=== PATIENT | male | born 1935 ===

== ENCOUNTER 2017-05-18 22:08 | Inpatient (IN) | payer MEDICARE, OTHER ==
[2017-05-18 22:17] VITALS: BMI 26.9
--- NOTE | 2017-05-18 22:36 | ED PDOC ---
Arrival/HPI - General Chief Complaint: Male Genitourinary Time Seen by Provider: 05/18/17 22:11 Historian: Patient - History of Present Illness Narrative History of Present Illness (Text): 05/18/17 22:30 An 82 year old male whose past medical history includes hypertension and prostate surgery, presents to the emergency department with 6 day duration hematuria and urinary frequency. The patient states that the bleeding became worse today in comparison to previous bleeding and his urinary frequency returned tonight. He notes that he went to visit his PMD 3 days ago, who prescribed him Nitrofurantoin for a UTI. The patient denies abdominal pain, fever, chest pain, shortness of breath, cough, chills, nausea, vomiting, diarrhea, headache, dizziness or any other complaints. PMD: Dr.Cruz- Johnson Time/Duration: Other (6 Days Ago) Symptom Onset: Sudden Symptom Course: Unchanged Activities at Onset: Rest, Light Context: Home Past Medical History - Provider Review Nursing Documentation Reviewed: Yes - Cardiac Hx Hypertension: Yes - Pulmonary Hx Respiratory Disorders: No - Neurological Hx Neurological Disorder: No - HEENT Hx HEENT Disorder: No - Renal Hx Renal Disorder: No - Endocrine/Metabolic Hx Endocrine Disorders: No - Hematological/Oncological Hx Blood Disorders: No - Integumentary Hx Dermatological Disorder: No - Musculoskeletal/Rheumatological Hx Musculoskeletal Disorders: No - Gastrointestinal Hx Gastrointestinal Disorders: No - Genitourinary/Gynecological Hx Prostate Problems: Yes - Psychiatric Hx Psychophysiologic Disorder: No Hx Substance Use: No - Anesthesia Hx Anesthesia: Yes Hx Anesthesia Reactions: No Family/Social History - Physician Review Nursing Documentation Reviewed: Yes Family/Social History: No Known Family HX Smoking Status: Never Smoked Hx Alcohol Use: Yes Hx Substance Use: No Allergies/Home Meds Allergies/Adverse Reactions: Allergies No Known Allergies Allergy (Verified 05/18/17 22:17) Home Medications: Home Meds Medication Instructions Recorded Confirmed Amlodipine Besylate/Benazepril 1 cap PO DAILY 05/19/17 05/19/17 [Amlodipine-Benazepril 10-40 mg] Review of Systems - Physician Review All systems were reviewed & negative as marked: Yes - Review of Systems Constitutional: absent: Fevers, Night Sweats Respiratory: absent: SOB, Cough Cardiovascular: absent: Chest Pain Gastrointestinal: absent: Abdominal Pain, Diarrhea, Nausea, Vomiting Genitourinary Male: Frequency, Hematuria Neurological: absent: Headache, Dizziness Physical Exam Vital Signs Temp Pulse Resp BP Pulse Ox 05/19/17 03:00 67 18 146/74 98 05/19/17 02:53 98.3 F 05/19/17 01:28 68 18 145/66 98 05/19/17 00:13 75 18 175/80 H 100 05/18/17 22:18 98.5 F 82 18 176/67 H 95 05/18/17 22:16 98.5 F 82 18 176/67 H 95 Appearance: Positive for: Well-Appearing, Non-Toxic, Comfortable Pain Distress: None Mental Status: Positive for: Alert and Oriented X 3 - Systems Exam Head: Present: Atraumatic Pupils: Present: PERRL Mouth: Present: Moist Mucous Membranes Neck: Present: Normal Range of Motion Respiratory/Chest: Present: Clear to Auscultation Cardiovascular: Present: Regular Rate and Rhythm Abdomen: No: Tenderness, Distention Upper Extremity: Present: NORMAL PULSES Lower Extremity: No: Edema Neurological: Present: GCS=15, Motor Func Grossly Intact, Normal Sensory Function, Other (no focal deficits) Skin: Present: Warm, Dry Psychiatric: Present: Alert, Oriented x 3 Medical Decision Making ED Course and Treatment: Progress Notes: CT Abdomen and Pelvis With Intravenous Contrast IMPRESSION: - 5 x 3 cm well-defined, masslike density in the bladder lumen. This could represent clot, but cannot rule out a bladder mass. Further workup is recommended. - Mild bilateral ureteral dilatation, without significant hydronephrosis, cause not identified. - Otherwise, no evidence of significant acute process. - Enlarged and heterogeneous prostate gland. - See above for remaining findings. Dictated and Authenticated by: Juana Rahman MD 05/19/2017 1:47 AM Eastern Time ([place] & [place]) EKG: Ordered, reviewed, and independently interpreted the EKG. Rate : 69 BPM Rhythm : NSR Interpretation : No acute ischemia. 1st degree block. After CBI the pts urine remained blood-tinged. [address] Ojeda who will admit 05/19/17 06:[address] Mcgrath who will see pt as consult - Lab Interpretations Lab Results: 05/18/17 22:35 05/18/17 22:35 Lab Results 05/19/17 00:20: Blood Type Confirm B POSITIVE 05/18/17 23:00: Blood Type B POSITIVE, Antibody Screen Negative, BBK History Checked No verified bt 05/18/17 22:35: Urine Color Dark red, Urine Appearance Cloudy, Urine pH 8.0, Ur Specific [place] 1.015, Urine Protein >=300 H, Urine Glucose (UA) 250 H, Urine Ketones 15 H, Urine Blood Large H, Urine Nitrate Positive H, Urine Bilirubin Negative, Urine Urobilinogen 4.0 H, Ur Leukocyte Esterase Small H, Urine RBC Tntc, Urine WBC 1 - 3, Ur Epithelial Cells 0 - 2, Urine Bacteria Rare 05/18/17 22:35: Sodium 136, Potassium 4.0, Chloride 99, Carbon Dioxide 26, Anion Gap 15, BUN 20, Creatinine 1.1, Est GFR ( Amer) > 60, Est GFR (Non- Af Amer) > 60, Random Glucose 141 H, Calcium 8.9, Total Bilirubin 1.5 H, AST 34 , ALT 39, Alkaline Phosphatase 66, Total Protein 7.4, Albumin 4.4, Globulin 3.0 , Albumin/Globulin Ratio 1.5 05/18/17 22:35: PT 10.7, INR 0.99, APTT 27.8 05/18/17 22:35: WBC 8.1, RBC 3.47 L, Hgb 11.6 L, Hct 33.4 L, MCV 96.3, MCH 33.4 , MCHC 34.7, RDW 12.0, Plt Count 210, MPV 9.2, Gran % 65.0, Lymph % (Auto) 24.0 , Lares % (Auto) 8.6 H, Eos % (Auto) 2.2, Baso % (Auto) 0.2, Gran # 5.26, Lymph # 2.0, Lares # 0.7 H, Eos # 0.2, Baso # 0.02 I have reviewed the lab results: Yes - RAD Interpretation Radiology Orders: 05/19/17 00:27 ABD & PELVIS IV CONTRAST ONLY [CT] Stat - Medication Orders Current Medication Orders: Sodium Chloride (Sodium Chloride 0.9%) 1,000 mls @ 100 mls/hr IV .Q10H LEONEL Last Admin: 05/19/17 04:06 Dose: 100 mls/hr Discontinued Medications Ceftriaxone Sodium (Rocephin 1 Gram Ivpb) 1 gm in 100 mls @ 200 mls/hr IVPB STAT STA PRN Reason: Protocol Stop: 05/19/17 00:44 Last Admin: 05/19/17 01:29 Dose: 200 mls/hr Iohexol (Omnipaque 350 100 Ml) Confirm Administered Dose 350 mg .ROUTE .STK-MED ONE Stop: 05/19/17 01:02 - Scribe Statement The provider has reviewed the documentation as recorded by the Scribe Indigo Doss Provider Scribe Attestation: All medical record entries made by the Scribe were at my direction and personally dictated by me. I have reviewed the chart and agree that the record accurately reflects my personal performance of the history, physical exam, medical decision making, and the department course for this patient. I have also personally directed, reviewed, and agree with the discharge instructions and disposition Disposition/Present on Arrival - Present on Arrival Any Indicators Present on Arrival: No History of DVT/PE: No History of Uncontrolled Diabetes: No Urinary Catheter: No History of Decub. Ulcer: No History Surgical Site Infection Following: None - Disposition Have Diagnosis and Disposition been Completed?: Yes Diagnosis: Hematuria, Bladder mass Disposition: HOSPITALIZED Disposition Time: 02:13 Condition: STABLE
[2017-05-18 23:02] LABS: BASO # 0.02 K/mm3 (0.0-2.0); BASO % 0.2 % (0.0-3.0); EOS # 0.2 (0.0-0.7); EOS % 2.2 % (1.5-5.0); GRAN # 5.26 (1.4-6.5); HEMATOCRIT 33.4 % (42.0-52.0); MEAN CELL VOLUME 96.3 fl (80.0-105.0); MEAN CORPUSCULAR HEMOGLOBIN 33.4 pg (25.0-35.0); MEAN CORPUSCULAR HGB CONC 34.7 g/dl (31.0-37.0); MEAN PLATELET VOLUME 9.2 fl (7.0-11.0); MONO # 0.7 (0.1-0.6); MONO % 8.6 % (1.0-6.0); WHITE BLOOD COUNT 8.1 10^3/ul (4.5-11.0)
[2017-05-18 23:03] LABS: ALB/GLOB RATIO 1.5 (1.1-1.8); ALKALINE PHOSPHATASE 66 U/L (38-126); ALT/SGPT 39 U/L (7-56); AST/SGOT 34 U/L (17-59); BILIRUBIN,TOTAL 1.5 mg/dL (0.2-1.3); BLOOD UREA NITROGEN 20 mg/dL (7-21); CALCIUM 8.9 mg/dL (8.4-10.5); CARBON DIOXIDE 26 mmol/L (21-33); CHLORIDE 99 mmol/L (98-107); GFR AFRICAN-AMERICAN > 60; GLUCOSE,RANDOM 141 mg/dL (70-110); SODIUM 136 mmol/L (132-148); TOTAL PROTEIN 7.4 g/dL (5.8-8.3)
[2017-05-18 23:05] LABS: INR 0.99 (0.93-1.08); PARTIAL THROMBOPLASTIN TIME 27.8 Seconds (23.7-30.8)
[2017-05-18 23:24] LABS: URINE BILIRUBIN NEGATIVE (NEGATIVE); URINE BLOOD LARGE (NEGATIVE); URINE GLUCOSE (UA) 250 mg/dL (NEGATIVE); URINE KETONE 15 mg/dL (NEGATIVE); URINE LEUKOCYTE ESTERASE SMALL Leu/uL (NEGATIVE); URINE PROTEIN >=300 mg/dL (<30 mg/dL)
[2017-05-18 23:25] LABS: URINE COLOR DARK RED (YELLOW)
[2017-05-18 23:26] LABS: URINE APPEARANCE CLOUDY (CLEAR)
[2017-05-18 23:48] LABS: URINE BACTERIA RARE (NEG); URINE EPITHELIAL CELLS 0 - 2 /hpf (0-5); URINE RBC TNTC /hpf (0-2)
[2017-05-19] MEDS: cefTRIAXone 1 gm 1 GM/100 ML BAG IVPB STA ×2 (00:36→01:29)
[2017-05-19] MEDS ORDERED: Iohexol 350 MG/100 ML VIAL ONE (01:01)
--- NOTE | 2017-05-19 01:48 | CT ---
EXAM: CT Abdomen and Pelvis With Intravenous Contrast EXAM DATE/TIME: 05/19/2017 12:27 AM CLINICAL HISTORY: 82 years old, male; Pain; Abdominal pain; Generalized TECHNIQUE: Axial computed tomography images of the abdomen and pelvis with intravenous contrast. All CT scans at this facility use one or more dose reduction techniques, viz.: automated exposure control; ma/kV adjustment per patient size (including targeted exams where dose is matched to indication; No evidence of bowel obstruction...e. head); or iterative reconstruction technique. Coronal and sagittal reformatted images were created and reviewed. CONTRAST: 96 mL of omni 350 administered intravenously. COMPARISON: No relevant prior studies available. FINDINGS: LIMITATIONS: Mild streak/motion artifact. LOWER THORAX: No infiltrate seen in the lung bases. ABDOMEN: LIVER: Fatty infiltration of the liver. 11 x 5 mm low density liver lesion, most likely a cyst. GALLBLADDER AND BILE DUCTS: No CT evidence of acute cholecystitis. No evidence of significant biliary ductal dilatation. PANCREAS: No CT evidence of acute pancreatitis. SPLEEN: No acute abnormality of the spleen identified. ADRENALS: No acute abnormality of the adrenal glands identified. KIDNEYS AND URETERS: Mild dilatation of the ureters bilaterally, symmetric in appearance, with no evidence of causative obstructing stones or significant hydronephrosis. This finding is of uncertain etiology. Low density lesions in the kidneys bilaterally, most likely representing cysts. One is seen in each kidney, the larger, on the right, measuring 1.4 cm. STOMACH AND BOWEL: Colonic diverticulosis, with no evidence of acute diverticulitis. Otherwise, no significant abnormality of the bowel is identified. No evidence of bowel obstruction. APPENDIX: Appendix is seen, and is within normal limits in appearance. PELVIS: BLADDER: Best seen on image 155 of series 2, there is an oval shaped, masslike density in the bladder lumen anteriorly, measuring up to 5 x 3 cm, which has a CT density of 70 Hounsfield units. This has well-defined margins. It partially abuts the bladder wall, and is partially surrounded by urine. There is mild bladder wall thickening. The bladder is decompressed by a catheter. REPRODUCTIVE: Prostate gland is enlarged, and enhances heterogeneously. It indents the base of the bladder. ABDOMEN and PELVIS: INTRAPERITONEAL SPACE: No evidence of free intraperitoneal air or fluid. BONES/JOINTS: No acute fractures or other acute bony abnormality noted. SOFT TISSUES: No acute abnormality of the visualized soft tissues is seen. VASCULATURE: No evidence of abdominal aortic aneurysm. No evidence of periaortic hemorrhage. LYMPH NODES: No evidence of diffuse lymphadenopathy. IMPRESSION: - 5 x 3 cm well-defined, masslike density in the bladder lumen. This could represent clot, but cannot rule out a bladder mass. Further workup is recommended. - Mild bilateral ureteral dilatation, without significant hydronephrosis, cause not identified. - Otherwise, no evidence of significant acute process. - Enlarged and heterogeneous prostate gland. - See above for remaining findings.
[2017-05-19] MEDS ORDERED: Sodium Chloride 0.9% 1,000 ML IV SCH (03:15)
--- NOTE | 2017-05-19 08:42 | RAD ---
HISTORY: Pre-Op COMPARISON: No prior. FINDINGS: LUNGS: No active pulmonary disease. PLEURA: No significant pleural effusion identified, no pneumothorax apparent. CARDIOVASCULAR: Normal. OSSEOUS STRUCTURES: Extensive multilevel thoracic spondylosis identified. VISUALIZED UPPER ABDOMEN: Normal. OTHER FINDINGS: None. IMPRESSION: No acute cardiopulmonary is appreciable.
[2017-05-19] MEDS ORDERED: Nitroglycerin 2% Ointment Foilpak UD TOP PRN (09:35)
[2017-05-19] MEDS: Sodium Chloride 0.45% 1,000 ML IV SCH ×2 (10:23→19:53)
[2017-05-19 10:29] LABS: BILIRUBIN,DIRECT 0.3 mg/dL (0.0-0.4); BILIRUBIN,TOTAL 1.8 mg/dL (0.2-1.3)
--- NOTE | 2017-05-19 11:29 | CARD ---
APPROVED REPORT EKG Measurement Heart [id number] <Conclusion> Sinus rhythm with 1st degree AV block Minimal voltage criteria for LVH, may be normal variant Borderline ECG
[2017-05-19 12:05] LABS: IRON 86 ug/dL (45-180)
[2017-05-19] MEDS ORDERED: Etomidate 20 mg/10ml Inj IV ONE (13:29)
[2017-05-19] MEDS ORDERED: Propofol 10 mg/ml Inj (20 ML) ONE (13:29)
[2017-05-19] MEDS ORDERED: Midazolam 2 MG/2 ML VIAL ONE ×2 (13:29→14:54)
--- NOTE | 2017-05-19 14:12 | HP ---
HISTORY OF PRESENT ILLNESS: This 82-year-old male presented to the [facility] ER with a chief complaint of gross hematuria. According to the patient and family at bedside, this has been ongoing for the past several days. The patient had gone to his PMD, Dr. Cooper who recommended oral antibiotics and advised the patient to have a bladder ultrasound. At the time of his evaluation this testing had not yet been done; however, the patient did complete an abdominopelvic CT in the emergency room at the [facility] earlier this morning, which showed a 5 x 3 cm well-defined mass-like density in the bladder lumen. This could represent a clot, but the bladder mass could not be ruled out and further workup was recommended. The patient was also noted on CAT scan to have mild bilateral ureteral dilatation without significant hydronephrosis, cause not identified. The patient also was noted to have an enlarged prostate gland and was admitted with gross hematuria and is currently receiving bladder irrigation, still with blood-tinged urine. PAST MEDICAL HISTORY: Significant for chronic hypertension and the patient states he has a history of benign prostatic hypertrophy for which he is recommended no medication. A consultation with Dr. Matt Mcgrath from urology is pending. OUTPATIENT MEDICATIONS: Includes amlodipine-benazepril 10-40 mg daily. ALLERGIES: THE PATIENT DENIES ANY ALLERGIES TO MEDICATIONS. SOCIAL HISTORY: States he is nondrinking and nonsmoking, non IV drug misusing patient. He is retired. FAMILY HISTORY: Mother of myocardial infarction. Father of war injuries in World War II. REVIEW OF SYSTEMS: HEAD REVIEW: No headache or seizure. EYES REVIEW: No change in visual acuity. EARS REVIEW: No hearing loss. THROAT REVIEW: No swallowing difficulty. NECK REVIEW: No stiffness. CARDIAC REVIEW: No chest pain. He has chronic hypertension. PULMONARY: No cough. No hemoptysis. GASTROINTESTINAL: No hematemesis or melena. No vomiting. No diarrhea. GENITOURINARY: Gross hematuria. VASCULAR: No claudication. PSYCHOLOGICAL: Denies any depression nor denies any knowledge of stroke. PHYSICAL EXAMINATION: VITAL SIGNS: Temperature 99, respirations 20, pulse 74, blood pressure 155/69 with pulse ox of 98% on room air. HEENT: Head is normocephalic and atraumatic. Eyes; no icterus. Ears; clear. Throat; noninjected. NECK: Supple. HEART: Regular S1 and S2. LUNGS: Clear to auscultation. ABDOMEN: Soft and nontender. There is no palpable organomegaly. No rebound. No guarding. No tenderness. EXTREMITIES: Show no clubbing, no cyanosis, and no edema. SKIN: Without rash. NEUROLOGIC: Intact. PSYCHOLOGIC: Alert and oriented x3. VASCULAR: Legs warm to touch. LABORATORY DATA: White count 8100, hemoglobin 11.6, hematocrit 33.4, and platelets 210,000. PT/INR is 0.99 and PTT 27.8. Sodium 136, K 4.0, chloride 99, bicarbonate 26, BUN 20, and creatinine 1.1. Random blood sugar is 141. Bilirubin 1.8 with direct bilirubin 0.3. AST 34, ALT 39, and alkaline phosphatase 66. Urinalysis showed too numerous to count red blood cells. Chest x-ray showed no acute cardiopulmonary process. Abdominopelvic CT as per HPI. EKG report earlier showed normal sinus rhythm with nonspecific ST-T wave changes. 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 PLAN: At present is to continue 0.45 saline at 100 mL per hour. He has a Willoughby catheter in place because of gross hematuria and blood clots. He is going to receive Norvasc 10 mg p.o. daily, Zestril 10 mg p.o. daily, and nitroglycerin 1 inch to chest wall q.4 hours p.r.n. accelerated hypertension. He has now ordered for Zofran 4 mg IV q.6 hours p.r.n. nausea and vomiting. He has a consultation with Dr. Matt Mcgrath pending who will take the patient to the OR for cystoscopy and possible bladder mass biopsy. At current, he is n.p.o., but diet will be advanced postoperatively by surgery. I have ordered a repeat hemoglobin and hematocrit for the a.m., urine culture, and basic metabolic panel for the a.m. All the above was discussed in detail with the patient, his family, and nursing staff at his bedside. Overall prognosis remains stable. Greater than sixty minutes were spent in the care and management of this patient today. Gisell Ojeda MD [facility] # [id number] ROBB
[2017-05-19] MEDS ORDERED: Iohexol 240 (50 ml) ONE (15:02)
[2017-05-19] MEDS ORDERED: Lidocaine 2% Jelly (Uro-Jet) ONE (15:02)
[2017-05-19] MEDS ORDERED: Lactated Ringer's 1,000 ML IV SCH (15:48)
[2017-05-19] MEDS ORDERED: HYDROmorphone 0.5 mg/0.5 ml ISec IVP PRN (15:48)
[2017-05-19 18:53] LABS: FOLATE > 20.0 ng/mL
[2017-05-20 07:26] LABS: HEMATOCRIT 28.4 % (42.0-52.0)
--- NOTE | 2017-05-20 12:59 | PN ---
DATE: 05/20/2017 SUBJECTIVE: The patient had cysto with evacuation of clots yesterday. His CBI is clear with CBI running only at a very moderate rate. There are no clots. He is comfortable. I took the traction off. PHYSICAL EXAMINATION: VITAL SIGNS: He is afebrile. LABORATORY DATA: His hemoglobin is 9.5, we will check it again in the morning. PLAN: Continue the CBI. Matt Mcgrath MD
[2017-05-20] MEDS: Sodium Chloride 0.45% 1,000 ML IV SCH (15:57)
--- NOTE | 2017-05-20 17:45 | PN ---
DATE: 05/20/2017 SUBJECTIVE: This is an 82-year-old male was examined at his bedside in room 577, bed 1 with his nurse, Eryn Lujan present. The patient is status post cystoscopy by Dr. Matt Mcgrath from urology where he was found to have inflammation of his prostate, which was cauterized and also the evacuation of blood clots. Currently, he has CBI that is running with blood-tinged urine and the patient remains afebrile. He remains on IV fluids, CBI and he was seen by urology earlier today. PHYSICAL EXAMINATION: VITAL SIGNS: Temperature was 99, respirations 20, pulse 75, blood pressure 128/64 with a pulse ox of 96% on room air. HEENT: Head is normocephalic and atraumatic. Eyes no icterus. NECK: Supple. HEART: Regular. S1 and S2. LUNGS: Clear. ABDOMEN: Soft. EXTREMITIES: No edema. SKIN: Without rash. NEUROLOGIC: Intact. PSYCHOLOGIC: Alert. VASCULAR: Legs warm to touch. He is wearing SCD antiembolism stockings. LABORATORY DATA: Admission hemoglobin 11.6, hematocrit 33.4; presently 9.5 hemoglobin and hematocrit 28.4. PT/INR is 0.99, PTT 27.8. Sodium 136, potassium 4.0, chloride 99, bicarbonate 26, BUN 20, creatinine 1.0 and random blood sugar was 141. Iron 86, TIBC 256, percent saturation 34, ferritin 370, vitamin B12 485 and folic acid level greater than 20. Urinalysis on admission showed too numerous to count red blood cells. Urine culture shows no growth. IMPRESSION: An 82-year-old male with gross hematuria secondary to prostatic hypertrophy with bleeding that required scraping and evacuation of blood clots by Dr. Matt Mcgrath with cystoscopy completed on 05/20/2017, now with continuous bladder irrigation and IV fluids for hematuria and comorbidities of anemia of chronic disease, acute anemia secondary to genitourinary bleeding and chronic hypertension. PLAN: At present is to continue 0.45 saline at 100 mL per hour. He continues on Norvasc 10 mg p.o. daily, Zestril 10 mg p.o. daily, Tylenol 650 p.o. q. 6 hours p.r.n. pain and Zofran 4 mg IV q. 6 hours p.r.n. nausea and vomiting. He has an order for nasal O2 p.r.n. heart healthy soft bland diet, continuous bladder irrigation, incentive spirometry q.1 hour and CBI through a Willoughby catheter. He is ordered to have a repeat CBC in the a.m. and we are awaiting surgical pathology report of his prostatic tissue. The patient will need to be followed daily until hematuria resolves and all the above was discussed in detail with the patient and nursing at bedside. Greater than fifty minutes were spent in the management and care of this patient today. Gisell Ojeda MD MTDD
[2017-05-21 09:35] LABS: BASO # 0.02 K/mm3 (0.0-2.0); BASO % 0.2 % (0.0-3.0); EOS # 0.2 (0.0-0.7); EOS % 1.8 % (1.5-5.0); GRAN # 7.47 (1.4-6.5); GRAN % 80.7 % (50.0-68.0); HEMATOCRIT 28.2 % (42.0-52.0); LYMPH % 10.3 % (22.0-35.0); MEAN CELL VOLUME 98.3 fl (80.0-105.0); MEAN CORPUSCULAR HEMOGLOBIN 32.8 pg (25.0-35.0); MEAN CORPUSCULAR HGB CONC 33.3 g/dl (31.0-37.0); MEAN PLATELET VOLUME 8.9 fl (7.0-11.0); MONO # 0.7 (0.1-0.6); RED CELL DISTRIBUTION WIDTH 12.1 % (11.5-14.5); WHITE BLOOD COUNT 9.3 10^3/ul (4.5-11.0)
[2017-05-21] MEDS: Sodium Chloride 0.45% 1,000 ML IV SCH ×3 (10:59→14:10)
--- NOTE | 2017-05-21 12:13 | PN ---
DATE: 05/21/2017 The CBI is clear. The patient is more comfortable with CBI. The plan is continue CBI for another 24 hours and then we can discontinue the Willoughby in a.m. if it remains clear. Matt Mcgrath MD
[2017-05-21] MEDS ORDERED: Magnesium Hydroxide Susp 30 ml UD PO ONE (12:32)
--- NOTE | 2017-05-21 17:08 | PN ---
SUBJECTIVE: This 82-year-old male was examined at his bedside. His case was reviewed with himself, nursing, his family, and Dr. Mcgrath. He is currently receiving continuous bladder irrigation in the setting of admission for gross hematuria and last evening had the evacuation of some blood clots with his CBI. The patient is complaining of constipation and one dose of Milk of Magnesia has been ordered by myself for that stat. The patient denies any fever, chills, chest pain, or shortness of breath. PHYSICAL EXAMINATION: VITAL SIGNS: Temperature of 97.6, respirations 18, pulse 68, and blood pressure 145/80 with a pulse ox of 97% on room air. HEENT: Head is normocephalic, atraumatic. Eyes: No icterus. Ears clear. Throat noninjected. NECK: Supple. HEART: Regular. S1 and S2. LUNGS: Clear. ABDOMEN: Soft without palpable organomegaly. EXTREMITIES: No clubbing, no cyanosis, no edema. SKIN: Without rash. NEUROLOGIC: Intact. PSYCHOLOGIC: Alert. VASCULAR: Legs warm to touch. His bladder irrigation, fluid in the Willoughby is clear at present. LABORATORY DATA: White count is 9300, hemoglobin 9.4, hematocrit 28.2, platelets 170,000. Sodium 136, K 4, chloride 99, bicarbonate 26, BUN 20, creatinine 1.1, random blood sugar was 141, TSAT percent 34, ferritin 370, B12 45 and folic acid 20. Microbiology shows urine culture with no growth. IMPRESSION: An 82-year-old male with gross hematuria who was found to have prostate enlargement and bleeding on cystoscopy that required prostatic scraping and evacuation of blood clots, for which the patient is now receiving continuous bladder irrigation with comorbidities of anemia of chronic disease and acute anemia of bleeding as well as chronic hypertension with postoperative obstipation. PLAN: At present is to continue 0.45 saline at 100 mL per hour. He is ordered to receive one dose of Milk of Magnesia for obstipation. He will continue on Norvasc 10 mg p.o. daily, Zestril 10 mg p.o. daily, nitroglycerin ointment 1 inch to chest wall q.4 hours p.r.n. accelerated hypertension if his systolic blood pressure is greater than 160 or diastolic blood pressure is greater than 100. He also will receive Zofran 4 mg IV q.6 hours p.r.n. nausea and vomiting. He has an order for a heart healthy bland diet. He was instructed on the use of incentive spirometry. He is continuing with Willoughby catheter and SCD antiembolism stockings. This case is being followed daily by Urology and we are awaiting his surgical pathology report as well and ultimate plan will be for discharge to home with urological follow-up as an outpatient. He will continue his medical followup with Dr. Cooper. Gisell Ojeda MD MTDD
--- NOTE | 2017-05-22 09:47 | PN ---
DATE: 05/22/2017 SUBJECTIVE: The CBI is completely clear. I am discontinuing the CBI, the patient will be able to getup and walk around. I am putting him on Flomax and will discontinue the Willoughby in the morning for voiding trial. Matt Mcgrath MD
--- NOTE | 2017-05-22 15:07 | PN ---
DATE: 05/22/2017 SUBJECTIVE: This 82-year-old male was examined at his bedside. His case was reviewed in detail with himself, nursing, and Dr. Matt Mcgrath from Urology. The patient's chronic bladder irrigation fluid remains clear in color at present. The patient was admitted with gross hematuria and urinary blood clots. He underwent cystoscopy and had scraping of his prostate and evacuation of bladder blood clots. He has been receiving continuous bladder irrigation since admission and this has been currently discontinued by Dr. Matt Mcgrath, from Urology. His pathology report from the prostatic scraping is pending and the patient will have his Willoughby catheter maintained at present. He denies any fever, chills, chest pain or shortness of breath. PHYSICAL EXAMINATION VITAL SIGNS: Temperature is 98, respiration is 18, pulse 65, and blood pressure 158/75 with a pulse ox of 97% on room air. HEENT: Head normocephalic, atraumatic. Eyes, no icterus. NECK: Supple. CARDIOPULMONARY: Heart is regular. S1 and S2. LUNGS: Clear. ABDOMEN: Soft. EXTREMITIES: No edema. SKIN: Without rash. NEUROLOGIC: Intact. PSYCHOLOGIC: Alert and oriented x3. VASCULAR: Warm to touch. LABORATORY DATA: White count 9300, hemoglobin 9.4, hematocrit 28.2, platelets 170,000. PT INR 0.99, PTT 27.8. Sodium 136, potassium 4.0, chloride 99, bicarb 26, BUN 20, creatinine 1.1. Random blood sugar 141. Percent saturation 34, iron level 86, ferritin 370, B12 normal 485, folic acid level greater than 20. AST 34, ALT 39, Alk phos 66. Total bilirubin 1.8, direct bilirubin 0.3. Urine culture, no growth. IMPRESSION: This is an 82-year-old male with history of benign prostate hypertrophy, admitted with gross hematuria, prostatic bleeding on cystoscopy, evacuation of blood clots required, and perioperative continuous bladder irrigation performed. 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 PLAN: Plan is to continue heart healthy diet. He continuous on Zestril 10 mg p.o. daily, Norvasc 10 mg p.o. daily, nitroglycerine to chest wall q. 4 hours p.r.n. accelerated hypertension, Flomax 0.4 mg p.o. daily, 0.45 saline at 100 mL per hour. The patient had a good bowel movement yesterday after the administration of milk of magnesia. He is ordered to have a heart healthy diet. He is encouraged to do incentive spirometry. He is wearing antiembolism stockings. He will be encouraged to ambulate with assistance now that his CBI is discontinued and he will await the results of surgical pathology and discuss these results with Dr. Matt Mcgrath when available. The patient has also been advised that upon discharge, he will need follow up with his PMD Dr. Cooper to discuss endoscopy and colonoscopy, which has not been completed in the recent past given his anemia of chronic disease and colonoscopy last performed over 10 years ago. Hopefully, the patient will be compliant with his recommendation and we will also need urological followup as well as an outpatient. Greater than fifty minutes were spent in the care and management and discussion of this patient today. Gisell Ojeda MD [facility]
[2017-05-22 23:53] VITALS: RESP 20
--- NOTE | 2017-05-23 08:38 | OP ---
PROCEDURE DATE: 05/19/2017 PREOPERATIVE DIAGNOSIS: Gross hematuria. POSTOPERATIVE DIAGNOSIS: Gross hematuria. PROCEDURES: Cystoscopy, evacuation of clots, bladder irrigation, fulguration of prostatic bleeding vessels. SURGEON: Dr. Carlos A Blank. TYPE OF ANESTHESIA: General. SPECIMENS: Clots and debris were sent to pathology. DRAINS: A 24-Anguillan 3-way Willoughby catheter. COMPLICATIONS: None. OPERATIVE FINDINGS: After informed consent was obtained, the patient was taken to the operating room and placed on the operating table. Anesthesia was administered. The patient was then placed in a dorsal lithotomy position and prepped and draped in the usual sterile fashion. A 26-Anguillan resectoscope with visualizing obturator was placed in the patient's urethra and advanced proximally under direct vision until the bladder was entered. Exam of the urethra revealed a massively enlarged prostate with hypervascularity and active bleeding. There was markedly enlarged median lobe of the prostate growing up and into the bladder, especially on the left side. The prostatic mucosa was ragged, hypervascular with multiple enlarged blood vessels with active bleeding noted from the prostatic mucosa. Upon entering the bladder, a large amount of clot was noted, a Urovac device was then obtained and it was used to evacuate the clots which was sent to pathology as specimen. Further inspection of the bladder was then made, there was grade 1 to 2 trabeculation, was able to visualize the left ureteral orifice after filling the bladder, it was underneath the part of the median lobe, appeared within normal limits. I was not able to visualized the right ureteral orifice. There was no obvious papillary tumor or stone noted in the bladder. At this point, using a rollerball electrode, the actively bleeding vessels on the prostate and bladder neck were cauterized with good results. After the actively bleeding vessels were cauterized, the final inspection was made, there was no remaining clot in the bladder. There was some mild ooze from the prostate. At this point, the procedure was completed. The bladder was drained, cystoscope was removed, a 24-Anguillan 3-way Willoughby catheter was then passed and placed to continuous bladder irrigation. The patient tolerated the procedure well. He was returned to the supine position and taken to the recovery room awakened and stable condition. Plan for now will be to continue 3-way irrigation until the active bleeding has completely resolved. I would start the patient on finasteride 5 mg one p.o. daily for now. I would not remove his catheter at this point and we will need to discuss further plans regarding the markedly enlarged prostate with the patient and with his medical attending doctor Dr. Gisell Ojeda. The patient is to remain off any aspirin, nonsteroidals or blood thinners as he is at high risk for rebleeding from his markedly enlarged prostate. The patient tolerated the procedure well. He was returned to the supine position and taken to the recovery room awake and stable condition. Carlos A Blank MD
--- NOTE | 2017-05-23 12:07 | PN ---
DATE: 05/23/2017 SUBJECTIVE: The patient's Willoughby has been removed. He has not voided yet was instructed to check a post void residual after he voids. If it is low, I have no problem with him being discharged on tamsulosin. I have given a prescription to be placed on his chart for that. He was also told to follow up in the office in 1 to 2 weeks. His white count is normal. He is afebrile, and there is no abdominal pain. Matt Mcgrath MD
[2017-05-23] MEDS ORDERED: Sodium Chloride 0.45% 1,000 ML IV SCH (14:45)
[2017-05-23 15:57] VITALS: BP 112/61; PULSE 65; TEMP 97.8; O2SAT 97
--- NOTE | 2017-05-23 18:54 | PN ---
DATE: 05/23/2017 SUBJECTIVE: This 82-year-old male was examined at his bedside. His case was reviewed with nursing, patient, and . The patient had his Willoughby catheter removed earlier today and when he ultimately did void, it was blood tinged. The patient at present is receiving IV fluids and has been encouraged to drink and we will ensure that the patient can void without his Willoughby and that the urine does indeed clear given his recent history of blood clots. PHYSICAL EXAMINATION VITAL SIGNS: The patient denies any fever or chills. Temperature is 98.2, respirations 20, pulse 70, and blood pressure 132/58 with a pulse ox of 94% on room air. HEENT: Head normocephalic and atraumatic. Eyes, no icterus. NECK: Supple. HEART: Regular S1 and S2. LUNGS: Clear. ABDOMEN: Soft. EXTREMITIES: No edema. SKIN: Without rash. NEUROLOGICAL: Intact. PSYCHOLOGICAL: Alert and oriented x3. VASCULAR: Legs warm to touch. LABORATORY DATA: White count 9300, hemoglobin 9.4, hematocrit 28.2, and platelets 170,000. PT/INR is 0.99, PTT 27.8, sodium 136, K 4.0, chloride 99, bicarb 26, BUN 20, creatinine 1.1, random blood sugar was 141, iron 86, percent saturation 34, ferritin 370, vitamin B12 45, and folic acid greater than 2, total bilirubin 1.8, direct bilirubin 0.3. Hepatitis A, B, C serology negative. HIV negative. IMPRESSION: An 82-year-old male with prostatic hypertrophy, chronic hypertension, anemia of chronic disease, fatty liver and probable Gilbert's syndrome, now admitted with gross hematuria, and blood clots that required cystoscopy evacuation of blood clots and prostatic fulgaration. PLAN: At present is to continue Flomax 0.4 mg p.o.at bedtime, Norvasc 10 mg p.o. daily, Zestril 10 mg p.o. daily, and IV fluids of 0.45 saline at 100 mL per hour. The patient continues on heart healthy bland diet. He is instructed on incentive spirometry and ultimate plan will be to discharge to home with followup with Dr. Mcgrath as an outpatient once urinary status is stabilized. All this was discussed in detail with the patient, , and nursing staff at bedside and the patient was also advised to follow up with his PMD regarding scheduling of endoscopy and colonoscopy as outpatient for chronic anemia as well as follow up with Dr. Mcgrath upon discharge within the next week regarding the results of his pathology report from his cystoscopy and prostate biopsy. iGsell Ojeda MD [facility]
--- NOTE | 2017-05-24 14:51 | DS ---
FINAL DIAGNOSES: Gross hematuria, bladder clots, prostatic enlargement, chronic hypertension, anemia of chronic disease and acute bleeding. DISPOSITION: Home. Follow up with his PMD, Dr. Cooper within 48 hours. Follow up with Dr. Matt Mcgrath, urologist at his office in one week. The patient was given the phone number for scheduling his appointment with Dr. Mcgrath and Dr. Mcgrath left a prescription for Flomax 0.4 mg p.o. daily. He will be discharged on amlodipine and benazepril 10/40 mg p.o. daily, and Flomax 0.4 mg at bedtime and a heart healthy diet. SUMMARY: This [id number] was admitted to [facility] for gross hematuria and urinary clotting in the setting of prostatic bleeding identified on cystoscopy, which required fulguration and evacuation of clots and postoperative CBI. The patient received IV fluids, had urine culture that showed no growth and ultimately had urine that cleared, His khalil was removed and he was able to void without incident. At the time of discharge, vital signs showed temperature 97.8, respirations 20, pulse 65, blood pressure 112/61, and a pulse ox of 97% on room air. Labs showed white count 9300, hemoglobin 9.4, hematocrit 28.2, platelets 170,000. PT/INR 0.99, PTT 27.8. Sodium 136, potassium 4.0, chloride 99, bicarb 26, BUN 20, creatinine 1.1, random blood sugar 141. Iron level 86, percent saturation 34, ferritin level 370, B12 45, folic acid great than 20. Total bilirubin 1.8, direct bilirubin 0.3, AST 34, ALT 39, alk phos 66. Abdominal CT showing a fatty liver. Hepatitis A, B, C panel negative. HIV screen negative. Chest x-ray shows no active disease and the patient was advised upon discharge to home to drink fluids and that he will need an elective endoscopy, colonoscopy for further evaluation for anemia of chronic disease and to follow up with Dr. Matt Mcgrath regarding issues of prostatic hypertrophy and urological followup of presenting signs and symptoms. All of the above was discussed in detail with the patient and his and nurse, who is at bedside; hopefully, the patient will be compliant with recommendations as outlined above. Gisell Ojeda MD [facility]
== END 2017-05-23 17:50 | disposition home or self-care (01) | DRG 718 ==
LOC: ED 22:08 → ERH 05-19 02:13 → 5RSO 05-19 03:19 → OBSVTOIN 05-19 09:40 → 5RSO 05-22 11:26
PROVIDERS: ADMIT Internal Medicine; ATTEND Internal Medicine
PROC: 0TCB8ZZ Extirpation of Matter from Bladder, Via Natural or Artificial Opening Endoscopic (ICD-10-PCS; 2017-05-19)
PROC: 0W3R8ZZ Control Bleeding in Genitourinary Tract, Via Natural or Artificial Opening Endoscopic (ICD-10-PCS; principal; 2017-05-19 14:30)
DX: N40.0 Benign prostatic hyperplasia without lower urinary tract symptoms (principal); R31.0 Gross hematuria; N42.1 Congestion and hemorrhage of prostate; D63.8 Anemia in other chronic diseases classified elsewhere; K76.0 Fatty (change of) liver, not elsewhere classified; I10 Essential (primary) hypertension; N28.82 Megaloureter; K59.00 Constipation, unspecified